=== PATIENT | male | born 1960 | race Caucasian/White ===

== ENCOUNTER → 2017-02-03 | Outpatient (CLI) | payer OTHER ==
[2017-02-03 10:47] LABS: HEMOGLOBIN 16.9 g/dL (12.2-16.2); LYMPH # 1.1 K/mm3 (0.7-4.5); LYMPH % 23.7 % (10-50.0)
[2017-02-03 12:00] VITALS: BP 112/71
[2017-02-03 12:15] VITALS: BP 107/72
[2017-02-03 12:30] VITALS: BP 110/72
== END ==
LOC: EDSEX 10:30 → COP 10:30
PROVIDERS: Internal Medicine
DX: C15.9 Malignant neoplasm of esophagus, unspecified (principal)

== ENCOUNTER 2017-05-24 09:53 | Outpatient (CLI) | payer OTHER ==
[~2017-05-24] VITALS: Ht 165.1 cm; Wt 60.8 kg
[~2017-05-24 09:53] MED LIST: ATIVAN1 MG PO; CLONAZEPAM 1MG T1 MG PO; IPRATROPIUM BROM3 M1 IH; KLONOPIN1 M2 PO; PHENERGAN25 M3 PO; PROAIR HFA0.09 MG/AC IH; SYMBICORT1 AER IH; ZOFRAN 8MG TABLE8 MG PO
[2017-05-24 09:58] LABS: BUN 19 mg/dL (7-18)
[2017-05-24 09:59] LABS: GFR (ESTIMATED) 86 ML/MIN (>60); HEMOGLOBIN 17.1 g/dL (14.1-18.0); LYMPH # 1.2 K/mm3 (0.7-4.5); LYMPH % 14.8 % (10-50)
[2017-05-24 12:06] VITALS: BP 107/74
[2017-05-24 13:37] VITALS: BP 125/53
[2017-05-24 13:50] VITALS: BP 119/61
[2017-05-24 14:20] VITALS: BP 121/68
--- NOTE | 2017-05-25 11:44 | RADIOLOGY REPORT PS360 ---
CT ABD PELVIS W/ CONTRAST CLINICAL INDICATION: METASTATIC COLORECTAL CANCER ORDERING PHYSICIAN: Mega Og MD PATIENT AGE: 57 years COMPARISON: None TECHNIQUE: Axial images obtained with sagittal and coronal reformats. PROCEDURE: Oral Contrast: Redicat IV Contrast: 75 mL [id number]. FINDINGS: Lower thorax: Centrilobular emphysematous changes with atelectasis or fibrosis in the left lung base anteriorly ABDOMEN: Liver: There are 2 lesions within the right hepatic lobe the largest of which measures 4.7 x 3.7 cm with some minimal calcification peripherally. Second lesion is posterior to this measures approximately 1.5 cm. These are consistent with metastatic foci. There is some atrophy of the right hepatic lobe. There is a benign-appearing isodensity in the left hepatic lobe at 4 mm. Small isodensity is present around the larger lesion in the right hepatic lobe and there are at least 2 isodensity is in the left hepatic dome superiorly. Probably benign. Artifact is present from metallic densities in the celiac region and portal area and right hepatic lobe. Gallbladder: Nondistended. No radio opaque stones. Pancreas: No masses or peripancreatic fluid collections. Spleen: Unremarkable. Adrenals: Unremarkable Kidneys/ureters: No masses. No renal calculi. No hydronephrosis. No perinephric fluid collections. No ureteral dilatation or obvious ureteral calculi. Probable small left renal cyst at 5 mm. Stomach bowel: Nondistended. No obvious mass or thickening. Appendix: No evidence of appendicitis. PELVIS: Reproductive: Mildly enlarged prostate Bladder: Nondistended. No obvious stones or masses. ABDOMEN & PELVIS: Peritoneum: No abnormal fluid collections. No obvious inflammatory changes. No free air. Lymph nodes: No enlarged lymph nodes apparent. Vasculature: No evidence of abdominal aortic aneurysm. No retroperitoneal hemorrhage evident. Bones: Degenerative changes upper lumbar spine IMPRESSION: 1. At least 2 suspicious hepatic lesions on the right suspicious for metastatic disease. By report the size is not significantly changed. 2. Postsurgical changes. 3. Other nonacute findings as described above
== END 2017-05-24 14:20 | disposition home or self-care (01) ==
LOC: COP 09:53 → RAD 10:30 → COP 10:30
PROVIDERS: Internal Medicine
DX: C20 Malignant neoplasm of rectum (principal); C78.7 Secondary malignant neoplasm of liver and intrahepatic bile duct
CPT/HCPCS: J9271; Q9967